=== PATIENT | female | born 1995 | race Caucasian/White ===

== ENCOUNTER → 2018-11-27 | Outpatient (CLI) | payer OTHER ==
[~2018-11-27] MED LIST: IBUP600 PO; RXONDA4ODT MM
== END | disposition home or self-care (01) ==
LOC: LAB SHORT 18:43 → LAB EV 18:43
DX: J02.9 Acute pharyngitis, unspecified (principal)
CPT/HCPCS: 87070

== ENCOUNTER 2019-01-17 23:01 | Emergency (ER) | payer OTHER ==
[~2019-01-17] VITALS: Ht 165.1 cm; Wt 56.2 kg
[2019-01-18 02:50] LABS: Calcium, Ionized (POC) 1.07 mmol/L (1.10-1.46); Creatinine (POC) 0.7 mg/dL (0.6-1.0); Hemoglobin (POC) 12.9 g/dL (12.0-16.0); Potassium (POC) 4.5 mmol/L (3.5-5.5)
[2019-01-18] MEDS ORDERED: Colace100 MG PO (03:02)
[2019-01-18] MEDS ORDERED: Anusol-HC 2.5%30 GM EXT (03:02)
== END 2019-01-18 03:29 | disposition home or self-care (01) ==
LOC: ER 23:01
PROVIDERS: Emergency Medicine
DX: K64.9 Unspecified hemorrhoids (principal); K62.5 Hemorrhage of anus and rectum
CPT/HCPCS: 36415; 80047; 85014; 99283

== ENCOUNTER → 2022-03-25 | Outpatient (CLI) | payer OTHER ==
[~2022-03-25] MED LIST changes: +Anusol-HC 2.5%30 GM EXT; +Colace100 MG PO
== END | disposition home or self-care (01) ==
LOC: LAB SHORT 16:33 → LAB 16:33
PROVIDERS: Advanced Practice Midwife
DX: Z01.419 Encounter for gynecological examination (general) (routine) without abnormal findings (principal)
CPT/HCPCS: G0123

== ENCOUNTER → 2022-04-11 | Outpatient (CLI) | payer OTHER | END | disposition home or self-care (01) | LOC: LAB 07:46 → LAB SHORT 07:46 | DX: D06.9 Carcinoma in situ of cervix, unspecified (principal) | CPT/HCPCS: 88305 ==

== ENCOUNTER → 2023-06-16 | Outpatient (CLI) | payer OTHER | END | disposition home or self-care (01) | LOC: LAB 14:15 → LAB SHORT 14:15 | PROVIDERS: Advanced Practice Midwife | DX: Z01.419 Encounter for gynecological examination (general) (routine) without abnormal findings (principal) | CPT/HCPCS: G0145 ==